=== PATIENT | male | born 1945 | race Caucasian/White ===

== ENCOUNTER 2017-10-07 08:00 | Outpatient (CLI) | payer MEDICARE, OTHER ==
[2017-10-07 12:50] LABS: BASOPHILS # (AUTO) 0.1 10^3/uL (0.0-0.1); BASOPHILS % (AUTO) 0.9 %; EOSINOPHILS # (AUTO) 0.5 10^3/uL (0.0-0.7); EOSINOPHILS % (AUTO) 5.5 %; HGB - HEMOGLOBIN 13.6 g/dL (14.0-18.0); LYMPHOCYTES # (AUTO) 1.3 10^3/uL (1.5-3.5); LYMPHOCYTES % (AUTO) 15.9 %; MEAN CORPUSCULAR HEMOGLOBIN 31.4 pg (27.0-31.0); MEAN CORPUSCULAR HGB CONC 34.6 g/dL (32.0-36.0); MEAN CORPUSCULAR VOLUME 90.8 fL (80.0-94.0); MEAN PLATELET VOLUME 8.9 fL (7.4-11.4); MONOCYTES # (AUTO) 0.9 10^3/uL (0.0-1.0); MONOCYTES % (AUTO) 10.8 %; NEUTROPHILS # (AUTO) 5.5 10^3/uL (1.5-6.6); NEUTROPHILS % (AUTO) 66.9 %; PLT - PLATELET COUNT 277 10^3/uL (130-450); RED BLOOD COUNT 4.33 10^6/uL (4.70-6.10); RED CELL DISTRIBUTION WIDTH 13.2 % (12.0-15.0); WHITE BLOOD COUNT 8.3 x10^3/uL (4.8-10.8)
[2017-10-07 13:11] LABS: ALBUMIN 4.2 g/dL (3.2-5.5); ALBUMIN/GLOBULIN RATIO 1.2 (1.0-2.2); ALKALINE PHOSPHATASE 55 IU/L (42-121); ALT ALANINE AMINOTRANSFERASE 28 IU/L (10-60); AST ASPARTATE AMINOTRANSFERASE 27 IU/L (10-42); BILIRUBIN,TOTAL 0.5 mg/dL (0.2-1.0); BUN - BLOOD UREA NITROGEN 19 mg/dL (6-20); CALCIUM 9.1 mg/dL (8.5-10.3); CARBON DIOXIDE - CO2 24 mmol/L (21-32); CHLORIDE 101 mmol/L (101-111); CHOL/HDL RATIO 4.3 (<5.0); CHOLESTEROL 193 mg/dL; CREATININE 0.8 mg/dL (0.6-1.2); GFR - MDRD 95 (>89); GLUCOSE 109 mg/dL (70-100); HDL CHOLESTEROL 45 mg/dL; LDL CHOLESTEROL,CALCULATED 129 mg/dL; LDL/HDL RATIO 2.9 (<3.6); SODIUM 135 mmol/L (135-145); TOTAL PROTEIN 7.6 g/dL (6.7-8.2); VLDL CHOLESTEROL 19 mg/dL
[2017-10-07 13:39] LABS: HB2 TOTAL 14.8 g/dL; HEMOGLOBIN A1C 0.57 g/dL; HEMOGLOBIN A1C % 5.7 % (4.6-6.2)
== END 2017-10-07 08:01 | disposition home or self-care (01) ==
LOC: LAB.WCP 08:00
PROVIDERS: ATTEND Family Medicine
DX: E78.5 Hyperlipidemia, unspecified (principal); R73.01 Impaired fasting glucose; L57.0 Actinic keratosis; I10 Essential (primary) hypertension; Z12.5 Encounter for screening for malignant neoplasm of prostate
CPT/HCPCS: 36415; 80053; 80061; 83036; 84443; 85025; G0103; 84153

== ENCOUNTER 2017-11-09 08:00 | Outpatient (CLI) | payer MEDICARE, OTHER ==
[2017-11-09 12:49] LABS: CREATININE 0.9 mg/dL (0.6-1.2)
== END 2017-11-09 08:01 | disposition home or self-care (01) ==
LOC: LAB.WCP 08:00
PROVIDERS: ATTEND Family Medicine
DX: I10 Essential (primary) hypertension (principal)
CPT/HCPCS: 36415; 80048

== ENCOUNTER → 2019-03-28 | Outpatient (CLI) | payer MEDICARE, OTHER ==
[2019-03-28 18:45] LABS: BASOPHILS # (AUTO) 0.1 10^3/uL (0.0-0.1); BASOPHILS % (AUTO) 0.9 %; EOSINOPHILS # (AUTO) 0.4 10^3/uL (0.0-0.7); EOSINOPHILS % (AUTO) 5.5 %; HGB - HEMOGLOBIN 12.9 g/dL (14.0-18.0); LYMPHOCYTES # (AUTO) 1.9 10^3/uL (1.5-3.5); LYMPHOCYTES % (AUTO) 29.3 %; MEAN CORPUSCULAR HEMOGLOBIN 31.2 pg (27.0-31.0); MEAN CORPUSCULAR HGB CONC 32.6 g/dL (32.0-36.0); MEAN CORPUSCULAR VOLUME 95.9 fL (80.0-94.0); MEAN PLATELET VOLUME 11.2 fL (7.4-11.4); MONOCYTES # (AUTO) 0.7 10^3/uL (0.0-1.0); MONOCYTES % (AUTO) 10.9 %; NEUTROPHILS # (AUTO) 3.4 10^3/uL (1.5-6.6); NEUTROPHILS % (AUTO) 53.1 %; PLT - PLATELET COUNT 254 10^3/uL (130-450); RED BLOOD COUNT 4.13 10^6/uL (4.70-6.10); RED CELL DISTRIBUTION WIDTH 13.2 % (12.0-15.0); WHITE BLOOD COUNT 6.4 x10^3/uL (4.8-10.8)
[2019-03-28 18:59] LABS: HB2 TOTAL 13.7 g/dL; HEMOGLOBIN A1C 0.55 g/dL; HEMOGLOBIN A1C % 5.8 % (4.6-6.2)
[2019-03-28 19:14] LABS: ALBUMIN 3.8 g/dL (3.2-5.5); ALBUMIN/GLOBULIN RATIO 1.1 (1.0-2.2); ALKALINE PHOSPHATASE 58 IU/L (42-121); ALT ALANINE AMINOTRANSFERASE 31 IU/L (10-60); AST ASPARTATE AMINOTRANSFERASE 28 IU/L (10-42); BILIRUBIN,TOTAL 1.2 mg/dL (0.2-1.0); BUN - BLOOD UREA NITROGEN 17 mg/dL (6-20); CARBON DIOXIDE - CO2 24 mmol/L (21-32); CHLORIDE 105 mmol/L (101-111); CHOL/HDL RATIO 4.6 (<5.0); CHOLESTEROL 193 mg/dL; CREATININE 0.9 mg/dL (0.6-1.2); GFR - MDRD 82 (>89); GLUCOSE 92 mg/dL (70-100); HDL CHOLESTEROL 42 mg/dL; LDL CHOLESTEROL,CALCULATED 131 mg/dL; LDL/HDL RATIO 3.1 (<3.6); SODIUM 139 mmol/L (135-145); TOTAL PROTEIN 7.2 g/dL (6.7-8.2); VLDL CHOLESTEROL 20 mg/dL
== END ==
LOC: LAB.WCP 08:00
PROVIDERS: ATTEND Family Medicine
DX: I10 Essential (primary) hypertension (principal); R73.01 Impaired fasting glucose; E78.5 Hyperlipidemia, unspecified
CPT/HCPCS: 36415; 80053; 80061; 83036; 83721; 85025

== ENCOUNTER 2019-12-14 08:00 | Outpatient (CLI) | payer MEDICARE, OTHER ==
[2019-12-14 18:24] LABS: BASOPHILS # (AUTO) 0.1 10^3/uL (0.0-0.1); BASOPHILS % (AUTO) 0.7 %; EOSINOPHILS # (AUTO) 0.4 10^3/uL (0.0-0.7); EOSINOPHILS % (AUTO) 5.8 %; HGB - HEMOGLOBIN 13.3 g/dL (14.0-18.0); LYMPHOCYTES % (AUTO) 27.9 %; MEAN CORPUSCULAR HEMOGLOBIN 29.9 pg (27.0-31.0); MEAN CORPUSCULAR HGB CONC 31.7 g/dL (32.0-36.0); MEAN CORPUSCULAR VOLUME 94.4 fL (80.0-94.0); MEAN PLATELET VOLUME 10.8 fL (7.4-11.4); MONOCYTES # (AUTO) 0.6 10^3/uL (0.0-1.0); MONOCYTES % (AUTO) 8.3 %; NEUTROPHILS # (AUTO) 4.1 10^3/uL (1.5-6.6); PLT - PLATELET COUNT 295 10^3/uL (130-450); RED BLOOD COUNT 4.45 10^6/uL (4.70-6.10); RED CELL DISTRIBUTION WIDTH 13.2 % (12.0-15.0); WHITE BLOOD COUNT 7.2 x10^3/uL (4.8-10.8)
[2019-12-14 18:38] LABS: ALBUMIN 3.9 g/dL (3.2-5.5); ALBUMIN/GLOBULIN RATIO 1.1 (1.0-2.2); BILIRUBIN,TOTAL 0.9 mg/dL (0.2-1.0); CALCIUM 9.2 mg/dL (8.5-10.3); CREATININE 0.9 mg/dL (0.6-1.2); TOTAL PROTEIN 7.5 g/dL (6.7-8.2)
[2019-12-14 18:59] LABS: HB2 TOTAL 13.4 g/dL; HEMOGLOBIN A1C 0.59 g/dL; HEMOGLOBIN A1C % 6.2 % (4.6-6.2)
== END 2019-12-14 23:59 | disposition home or self-care (01) ==
LOC: LAB.WCP 08:00
PROVIDERS: ATTEND Family Medicine
DX: G81.90 Hemiplegia, unspecified affecting unspecified side (principal); E78.5 Hyperlipidemia, unspecified; R73.01 Impaired fasting glucose; I10 Essential (primary) hypertension
CPT/HCPCS: 36415; 80053; 83036; 85025; 85651

== ENCOUNTER 2019-12-18 12:57 | Outpatient (CLI) | payer MEDICARE, OTHER ==
[2019-12-18] MEDS ORDERED: GADOBUTROL 10 MMOL/10 ML VIAL ONE (16:22)
[2019-12-18] MEDS ORDERED: GADOBUTROL 10 MMOL/10 ML VIAL IVP ONE (17:32)
--- NOTE | 2019-12-18 18:08 | MRI Report ---
Reason: TRANSIENT ISCHEMIC ATTACK Procedure Date: 12/18/2019 Accession Number: [id number] / [id number] Procedure: MRI - Brain W/WO CPT Code: Final Report FULL RESULT: EXAM: MRI BRAIN WITHOUT AND WITH CONTRAST EXAM DATE: 12/18/2019 04:32 PM. CLINICAL HISTORY: Episodes over the last 1-2 weeks with difficulty controlling the left leg. Feels off balance. COMPARISON: Carotid ultrasound 12/18/2019. TECHNIQUE: Multiplanar, multisequence T1-weighted and fluid-sensitive MR sequences of the brain were performed before and after administration of intravenous contrast. Sequences optimized for routine evaluation. Other: None. IV Contrast: 10 cc Gadavist. FINDINGS: There are small areas of cortical restricted diffusion signal throughout the distribution of the right MCA. These are fairly clustered in the right inferior parietal lobe over a roughly 3 cm area with extension near the parietal occipital junction. A few of these areas of restricted diffusion signal demonstrate very faint low ADC map signal. Most of these areas do not demonstrate low ADC map signal. In these areas of restricted diffusion signal there is FLAIR hyperintense signal. In the larger areas there is gyral/cortical thickening present. In the left precentral gyrus superiorly there are areas of cortical FLAIR signal with a sales representative womens health focus on image 22 series 701. There is no significant volume loss associated with these FLAIR signal abnormalities in the left precentral gyrus. There are subcortical and deep white matter FLAIR hyperintensities scattered throughout the cerebral hemisphere white matter bilaterally. There is motion degradation on the exam. No abnormal T2 or FLAIR hyperintensities are present in the infratentorial brain. There is an expected flow void in the major intracranial vessels at the skull base. No mass is present in either orbit or in either Meckel's cave. Scattered paranasal sinus mucosal thickening is present. Postcontrast images demonstrate areas of gyriform enhancement involving segments of the right MCA distribution including both anterior and posterior divisions. No abnormal enhancement is seen in the infratentorial brain. No enhancing mass is present in the brain parenchyma. Expected enhancement is present in the major dural venous sinuses. The cavernous sinuses enhance in symmetric fashion. No cerebellar tonsillar ectopia is present. There is some gyriform T1 shortening in the right parietal lobe in the area of restricted diffusion signal and enhancement. There is some magnetic susceptibility in this region as well. IMPRESSION: 1. There are subacute infarcts involving multiple areas in the right MCA distribution. The greatest area of involvement is in the inferior right parietal lobe where there is some gyriform enhancement and some petechial hemorrhagic transformation. 2. There are late subacute/early chronic infarcts involving the cortex of the left precentral gyrus. 3. Subacute infarcts in 2 vascular distributions raises the possibility of an embolic source or a PACKAGE HANDLER vasculitis. 3. No enhancing mass is present in the brain parenchyma. 4. Small vessel ischemic change is present in the cerebral hemisphere white matter bilaterally. The findings were discussed with the patient by telephone. The patient was referred to the [facility] ER. RADIA
--- NOTE | 2019-12-18 18:21 | Ultrasound Report ---
Reason: HEMIPLEGIA Procedure Date: 12/18/2019 Accession Number: [id number] / [id number] Procedure: US - Carotid Doppler Complete CPT Code: Final Report FULL RESULT: EXAM: BILATERAL CAROTID AND VERTEBRAL ARTERY DUPLEX DOPPLER ULTRASOUND. EXAM DATE: 12/18/2019 01:59 PM. CLINICAL HISTORY: Hemiplegia. COMPARISON: None. TECHNIQUE: Grayscale imaging, color Doppler, and duplex spectral Doppler were used to evaluate the carotid and vertebral arteries bilaterally. Static images were obtained. FINDINGS: Mild diffuse calcified plaque is present bilaterally. Normal antegrade flow is present in bilateral vertebral arteries. VELOCITIES (cm/s): Right CCA prox: PSV 83.3 cm/sec, EDV 9.8 cm/sec CCA mid: PSV 91.1 cm/sec, EDV 12.5cm/sec CCA dist: PSV 92.6 cm/sec, EDV 16.2cm/sec ICA prox: PSV 243.2 cm/sec, EDV 46.3 cm/sec ICA mid: PSV 236.1 cm/sec, EDV 20.2 cm/sec ICA dist: PSV 63.8 cm/sec, EDV 15.1 cm/sec ECA prox: PSV 116.9 cm/sec, EDV 12.1 cm/sec Vert: PSV 45.3 cm/sec, EDV 11.1 cm/sec ICA/CCA: 0.7 Left CCA prox: PSV 108.0 cm/sec, EDV 20.2 cm/sec CCA mid: PSV 124.8 cm/sec, EDV 23.7cm/sec CCA dist: PSV 127.6 cm/sec, EDV 20.5cm/sec Bulb: PSV 126.1 cm/sec, EDV 20.5 cm/sec ICA prox: PSV 167.4 cm/sec, EDV 33.0 cm/sec ICA mid: PSV 115.9 cm/sec, EDV 36.4 cm/sec ICA dist: PSV 70.0 cm/sec, EDV 18.6 cm/sec ECA prox: PSV 125.3 cm/sec, EDV 9.9 cm/sec Vert: PSV 49.1 cm/sec, EDV 12.3 cm/sec ICA/CCA: 0.9 IMPRESSION: Elevated velocities in the proximal and mid right internal carotid artery suggestive of greater than 70% stenosis. However, this is discordant with the degree of stenosis on grayscale imaging as well as the ICA/CCA ratio and Doppler tracing. Recommend further evaluation with CTA or MRA. No hemodynamically significant stenoses in the left internal carotid artery. General Recommendations: Stenosis =50% ICA - Follow-up ultrasound 6-12 months Stenosis <50% ICA - High Risk Patient with plaque - Follow-up ultrasound 1-2 years Normal Study but High Risk Patient - Follow-up ultrasound 3-5 years Management recommendations and diagnostic criteria are based on current IAC endorsed standards in Carotid Artery Stenosis: Grayscale and Doppler Ultrasound Diagnosis. Validated velocity measurements with angiographic measurements and velocity criteria are extrapolated from diameter data as defined by the Society of Radiologists in Ultrasound Consensus Conference Radiology 2003; 229;340-346. RADIA
== END 2019-12-18 12:58 | disposition home or self-care (01) ==
LOC: DI 12:57
PROVIDERS: ATTEND Family Medicine
DX: I63.511 Cerebral infarction due to unspecified occlusion or stenosis of right middle cerebral artery (principal); I63.9 Cerebral infarction, unspecified; I67.82 Cerebral ischemia; I65.21 Occlusion and stenosis of right carotid artery; G81.90 Hemiplegia, unspecified affecting unspecified side
CPT/HCPCS: 70553; 93308; 93880

== ENCOUNTER 2019-12-18 17:26 | Emergency (ER) | payer MEDICARE, OTHER ==
--- NOTE | 2019-12-18 17:54 | ED Physician Documentation ---
PD HPI FOCAL NEURO - Stated complaint Stated Complaint: ABN MRI REPORT - Chief complaint Chief Complaint: Neuro - History obtained from History obtained from: Patient - History of Present Illness Timing - onset: Other (74-year-old gentleman without history of stroke, about 2 weeks ago he had some migratory problems on the left side. It started with transient numbness of the fingers and then a couple of days later had about a 10-minute episode of weakness of the left leg. Now he is all better but followed up with his doctor who ordered an MRI, blood work, echocardiogram, and carotid Dopplers. He was referred over from MRI for concern for stroke. He has no ongoing symptoms. Since all these issues he had a couple weeks ago his doctor did start him on a baby aspirin a day. His cholesterol within the year was normal per him.) Review of Systems Constitutional: denies: Fever, Chills Nose: denies: Rhinorrhea / runny nose, Congestion Cardiac: denies: Chest pain / pressure, Palpitations Respiratory: denies: Dyspnea PD PAST MEDICAL HISTORY - Past Medical History Past Medical History: No - Past Surgical History Past Surgical History: No - Allergies Allergies/Adverse Reactions: Allergies Allergy/AdvReac Type Severity Reaction Status Date / Time No Known Drug Allergies Allergy Verified 12/18/19 17:35 - Social History Does the pt smoke?: No Smoking Status: Never smoker Does the pt drink ETOH?: No Does the pt have substance abuse?: No - Immunizations Immunizations are current?: Yes - POLST Patient has POLST: No PD ED PE NORMAL - Vitals Vital signs reviewed: Yes - General General: Alert and oriented X 3, No acute distress - HEENT HEENT: PERRL, EOMI - Neck Neck: Supple, no meningeal sign, No bony TTP - Neuro Neuro: Alert and oriented X 3, dispatcher bus and trolley 2-12 intact, No motor deficit, No sensory deficit, Normal speech - Psych Psych: Normal mood, Normal affect NIHSS - Time Time: 17:50 - Level of Consciousness Level of consciousness: (0) Alert, Keenly responsive LOC Questions: (0) Answers both Q's correct LOC Commands: (0) Performs both correctly - Gaze Best Gaze: (0) Normal - Visual Visual: (0) No loss - Facial Palsy Facial Palsy: (0) Normal, symmetrical movement - Motor Arms (both separate) Motor Arm (right): (0) No drift Motor Arm (left): (0) No drift - Motor Legs (both separate) Motor Leg (right): (0) No drift Motor Leg (left): (0) No drift - Limb Ataxia Limb Ataxia: (0) Absent - Sensory Sensory: (0) Normal - Best Language Best Language: (0) No aphasia - Dysarthria Dysarthria: (0) Normal - Extinction and Inattention (formally neg Extinction and inattention: (0) No abnormality - Total Score/Results Total Score/Result: 0 Results - Vitals Vitals: Vital Signs - 24 hr 12/18/19 12/18/19 12/18/19 17:32 17:35 21:16 Temperature 36.3 C L 36.7 C Heart Rate 59 L 59 L 61 Respiratory 18 18 17 Rate Blood Pressure 155/87 H 155/87 H 172/89 H O2 Saturation 94 94 99 Oxygen O2 Source Room air - Rads (name of study) MRI Brain Radiology: Critical result (1. There are subacute infarcts involving multiple areas in the right MCA distribution. The greatest area of involvement is in the inferior right parietal lobe where there is some gyriform enhancement and some petechial hemorrhagic transformation. 2. There are late subacute/early chronic infarcts involving the cortex of the left precentral gyrus. 3. Subacute infarcts in 2 vascular distributions raises the possibility of an embolic source or a WATER CHASER vasculitis. 3. No enhancing mass is present in the brain parenchyma. 4. Small vessel ischemic change is present in the cerebral hemisphere white matter bilaterally.) carotid doppler Radiology: Final report received (Elevated velocities in the proximal and mid right internal carotid artery suggestive of greater than 70% stenosis. However, this is discordant with the degree of stenosis on grayscale imaging as well as the ICA/CCA ratio and Doppler tracing. Recommend further evaluation with CTA or MRA. No hemodynamically significant stenoses in the left internal carotid artery.) CTA Neck Radiology: EMP read contemporaneously (90% stenosis proximal cervical ICA And a left-sided filling defect, likely atherosclerotic plaque.) PD MEDICAL DECISION MAKING - ED course ED course: 74-year-old gentleman with completed now asymptomatic stroke in multiple areas mostly on the right with carotid Doppler showing elevated velocities on the right. Case discussed by phone with the [place] stroke neurologist who recommended aspirin which he is already been statin started on as well as a statin regardless of his cholesterol. Agreed with a CT angiogram to rule out vasculitis and to better define the anatomy because he does fit criteria for carotid endarterectomy and this should be done within 2 weeks but not emergently. Departure - Departure Disposition: 01 Home, Self Care Clinical Impression: Carotid stenosis, right Cerebrovascular accident (CVA) Qualifiers: CVA mechanism: unspecified Qualified Code(s): I63.9 - Cerebral infarction, unspecified Condition: Stable Comments: Downtime discharge instructions for Shira Anderson Date of service 12/18/2019 Attending physician Jin Owens MD Diagnosis stroke, right carotid artery stenosis Take a baby aspirin a day, also the new cholesterol medicine Atorvastatin 40 mg p.o. daily #30 Follow-up with Dr. Guy tomorrow, he will need to refer you to a vascular surgeon for carotid endarterectomy. Return immediately for new strokelike symptoms. Do not delay if that happens. Discharge Date/Time: 12/18/19 20:45
[2019-12-18] MEDS ORDERED: IOVERSOL 320 100 ML VIAL IVP ONE (18:33)
[2019-12-18] MEDS ORDERED: ATORVASTATIN 40 MG TABLET PO STA (19:07)
[2019-12-18 21:40] VITALS: BP 172/89
--- NOTE | 2019-12-18 21:40 | CT Report ---
Reason: abnormal carotid doppler Procedure Date: 12/18/2019 Accession Number: [id number] / [id number] Procedure: CT - ANGIO NECK W CPT Code: Final Report FULL RESULT: EXAM: CT ANGIOGRAM NECK EXAM DATE: 12/18/2019 07:32 PM. CLINICAL HISTORY: Balance issues. Left finger numbness. Subacute stroke seen on recent MRI. COMPARISON: MRI brain from today. Carotid ultrasound from today. TECHNIQUE: Routine axial helical imaging was performed from the skull base through the aortic arch. Reconstructions: Routine multiplanar 3D MIP reconstructions. IV Contrast: 80 cc Optiray 320. Evaluation of arterial stenosis is based on a NASCET method of measurement. In accordance with CT protocol optimization, one or more of the following dose reduction techniques were utilized for this exam: automated exposure control, adjustment of mA and/or KV based on patient size, or use of iterative reconstructive technique. FINDINGS: Great vessel origins: Atherosclerotic plaque is seen in the transverse thoracic aorta. No significant great vessel origin stenosis is present. Right Carotid: Atherosclerotic plaque is seen involving the distal CCA and proximal cervical ICA. There is a roughly 8-9 mm in length segment of severe stenosis beginning just distal to the origin of the cervical ICA with degree of stenosis estimated at least 90%. Left Carotid: Atherosclerotic plaque is seen in the distal CCA and proximal cervical ICA. There is a linear filling defect along the lateral wall of the proximal cervical ICA with contrast seen lateral and medial. There is some irregularity of the lateral margin of the contrast. No significant stenosis is seen in the cervical ICA. Vertebrals: The cervical vertebral arteries are patent. There is mild narrowing at the origin of each vertebral artery. Intracranial Circulation: Not seen in its entirety. No high-grade stenosis, filling defect, or occlusion is present in the basilar trunk or in the M1 segment of either MCA. The proximal JUAN and the proximal HELPER STEEL FABRICATION are patent bilaterally. Atherosclerotic plaque is seen in the cavernous ICA bilaterally without significant narrowing present. A posterior communicating artery is seen on the left. No saccular outpouching of contrast is present to suggest an aneurysm. Other: No mass is present in either orbit. No mass is present in the nasopharynx. No mass is identified in either parotid gland or in either submandibular gland. No bulky lymphadenopathy is identified along either internal jugular chain. No bulky lymphadenopathy is seen in the visualized upper mediastinum. There is a 5-6 mm hypoenhancing nodule in the right thyroid lobe. CT cannot distinguish benign from malignant thyroid disease. A calcified pulmonary nodule is seen in the right upper lobe. Pleural/parenchymal scarring is present in each lung apex. Degenerative disk disease and osteophyte formation are seen throughout the cervical spine and visualized upper thoracic spine. The central canal is mildly stenotic from C4 through C6. There is multilevel cervical foraminal stenosis IMPRESSION: 1. There is an at least 90% stenosis in the proximal cervical ICA on the right over a 8-9 mm in length segment which begins just distal to its origin. 2. There is a linear filling defect along the lateral margin of the proximal cervical ICA on the left. This could reflect ulcerated atherosclerotic plaque. A short segment dissection is also in the differential. 3. Mild narrowing is seen at the origin of each vertebral artery. The cervical vertebral arteries are patent. 4. No significant stenosis is present in the basilar trunk, either cavernous ICA, or M1 segment of either MCA. 5. Degenerative changes are seen in the cervical and upper thoracic spine discussed above. 6. A small thyroid nodule is seen on the right discussed above. RADIA
[2019-12-19] MEDS ORDERED: IOVERSOL 320 100 ML VIAL IVP ONE (11:36)
== END 2019-12-18 20:45 | disposition home or self-care (01) ==
LOC: ED 17:26
DX: I63.9 Cerebral infarction, unspecified (principal); I65.21 Occlusion and stenosis of right carotid artery; I63.511 Cerebral infarction due to unspecified occlusion or stenosis of right middle cerebral artery; I67.82 Cerebral ischemia; G81.90 Hemiplegia, unspecified affecting unspecified side
CPT/HCPCS: 70498; 70553; 93308; 93880; 99284; A9270; A9585

== ENCOUNTER 2020-03-28 11:26 | Outpatient (CLI) | payer MEDICARE, OTHER ==
[2020-03-28 18:31] LABS: BASOPHILS # (AUTO) 0.1 10^3/uL (0.0-0.1); BASOPHILS % (AUTO) 0.9 %; EOSINOPHILS # (AUTO) 0.8 10^3/uL (0.0-0.7); EOSINOPHILS % (AUTO) 10.5 %; HGB - HEMOGLOBIN 13.6 g/dL (14.0-18.0); LYMPHOCYTES # (AUTO) 1.9 10^3/uL (1.5-3.5); LYMPHOCYTES % (AUTO) 24.4 %; MEAN CORPUSCULAR HEMOGLOBIN 31.3 pg (27.0-31.0); MEAN CORPUSCULAR HGB CONC 32.2 g/dL (32.0-36.0); MEAN CORPUSCULAR VOLUME 97.2 fL (80.0-94.0); MEAN PLATELET VOLUME 11.2 fL (7.4-11.4); MONOCYTES # (AUTO) 0.7 10^3/uL (0.0-1.0); MONOCYTES % (AUTO) 9.5 %; NEUTROPHILS # (AUTO) 4.1 10^3/uL (1.5-6.6); NEUTROPHILS % (AUTO) 54.3 %; PLT - PLATELET COUNT 259 10^3/uL (130-450); RED BLOOD COUNT 4.35 10^6/uL (4.70-6.10); RED CELL DISTRIBUTION WIDTH 13.2 % (12.0-15.0); WHITE BLOOD COUNT 7.6 x10^3/uL (4.8-10.8)
[2020-03-28 18:36] LABS: CALCIUM 8.9 mg/dL (8.5-10.3); CARBON DIOXIDE - CO2 29 mmol/L (21-32); CHLORIDE 105 mmol/L (101-111); GLUCOSE 107 mg/dL (70-100); SODIUM 139 mmol/L (135-145)
[2020-03-28 18:50] LABS: HB2 TOTAL 13.9 g/dL; HEMOGLOBIN A1C 0.54 g/dL; HEMOGLOBIN A1C % 5.7 % (4.6-6.2)
[2020-03-28 19:00] LABS: ALBUMIN 4.1 g/dL (3.2-5.5); ALBUMIN/GLOBULIN RATIO 1.3 (1.0-2.2); ALKALINE PHOSPHATASE 62 IU/L (42-121); ALT ALANINE AMINOTRANSFERASE 35 IU/L (10-60); AST ASPARTATE AMINOTRANSFERASE 26 IU/L (10-42); BILIRUBIN,TOTAL 0.7 mg/dL (0.2-1.0); BUN - BLOOD UREA NITROGEN 19 mg/dL (6-20); CHOL/HDL RATIO 2.7 (<5.0); CHOLESTEROL 127 mg/dL; HDL CHOLESTEROL 47 mg/dL; LDL CHOLESTEROL,CALCULATED 66 mg/dL; LDL/HDL RATIO 1.4 (<3.6); TOTAL PROTEIN 7.3 g/dL (6.7-8.2); VLDL CHOLESTEROL 14 mg/dL
== END 2020-03-28 23:59 | disposition home or self-care (01) ==
LOC: LAB.WCP 11:26
PROVIDERS: ATTEND Family Medicine
DX: I10 Essential (primary) hypertension (principal); I63.50 Cerebral infarction due to unspecified occlusion or stenosis of unspecified cerebral artery; R73.01 Impaired fasting glucose; E78.5 Hyperlipidemia, unspecified; G45.9 Transient cerebral ischemic attack, unspecified
CPT/HCPCS: 36415; 80053; 80061; 83036; 83721; 84443; 85025

== ENCOUNTER 2021-06-17 08:00 | Outpatient (CLI) | payer MEDICARE, OTHER ==
[2021-06-17 12:05] LABS: BASOPHILS # (AUTO) 0.1 10^3/uL (0.0-0.1); BASOPHILS % (AUTO) 0.9 %; EOSINOPHILS # (AUTO) 0.4 10^3/uL (0.0-0.7); HCT - HEMATOCRIT 42.5 % (42.0-52.0); HGB - HEMOGLOBIN 13.7 g/dL (14.0-18.0); LYMPHOCYTES # (AUTO) 1.9 10^3/uL (1.5-3.5); LYMPHOCYTES % (AUTO) 28.8 %; MEAN CORPUSCULAR HEMOGLOBIN 30.7 pg (27.0-31.0); MEAN CORPUSCULAR HGB CONC 32.2 g/dL (32.0-36.0); MEAN CORPUSCULAR VOLUME 95.3 fL (80.0-94.0); MEAN PLATELET VOLUME 10.8 fL (7.4-11.4); MONOCYTES # (AUTO) 0.8 10^3/uL (0.0-1.0); MONOCYTES % (AUTO) 11.3 %; NEUTROPHILS # (AUTO) 3.5 10^3/uL (1.5-6.6); NEUTROPHILS % (AUTO) 52.7 %; PLT - PLATELET COUNT 269 10^3/uL (130-450); RED BLOOD COUNT 4.46 10^6/uL (4.70-6.10); RED CELL DISTRIBUTION WIDTH 13.2 % (12.0-15.0); WHITE BLOOD COUNT 6.6 x10^3/uL (4.8-10.8)
[2021-06-17 12:45] LABS: ALBUMIN 4.1 g/dL (3.2-5.5); ALBUMIN/GLOBULIN RATIO 1.2 (1.0-2.2); ALKALINE PHOSPHATASE 59 IU/L (42-121); ALT ALANINE AMINOTRANSFERASE 39 IU/L (10-60); AST ASPARTATE AMINOTRANSFERASE 28 IU/L (10-42); BILIRUBIN,TOTAL 0.6 mg/dL (0.2-1.0); BUN - BLOOD UREA NITROGEN 25 mg/dL (6-20); CALCIUM 9.6 mg/dL (8.5-10.3); CARBON DIOXIDE - CO2 26 mmol/L (21-32); CHLORIDE 108 mmol/L (101-111); CHOL/HDL RATIO 3.1 (<5.0); CHOLESTEROL 129 mg/dL; CREATININE 1.1 mg/dL (0.6-1.2); GFR - MDRD 65 (>89); GLUCOSE 115 mg/dL (70-100); HDL CHOLESTEROL 42 mg/dL; LDL CHOLESTEROL,CALCULATED 67 mg/dL; LDL/HDL RATIO 1.6 (<3.6); SODIUM 144 mmol/L (135-145); TOTAL PROTEIN 7.6 g/dL (6.7-8.2); TRIGLYCERIDES 99 mg/dL; VLDL CHOLESTEROL 20 mg/dL
[2021-06-17 13:11] LABS: THYROID STIMULATING HORMONE 3.36 uIU/mL (0.34-5.60)
== END 2021-06-17 23:59 | disposition home or self-care (01) ==
LOC: LAB.WCP 08:00
PROVIDERS: ATTEND Family Medicine
DX: I63.9 Cerebral infarction, unspecified (principal); G45.9 Transient cerebral ischemic attack, unspecified; I10 Essential (primary) hypertension; G47.33 Obstructive sleep apnea (adult) (pediatric)
CPT/HCPCS: 36415; 80053; 80061; 83721; 84443; 85025

== ENCOUNTER 2021-07-23 14:58 | Outpatient (CLI) | payer MEDICARE, OTHER | END 2021-07-23 23:59 | LOC: LAB.N 14:58 | PROVIDERS: ATTEND Family Medicine | DX: U07.1 COVID-19 (principal); R91.8 Other nonspecific abnormal finding of lung field | CPT/HCPCS: 71046; U0004 ==

== ENCOUNTER 2021-07-23 15:26 | Outpatient (CLI) | payer MEDICARE, OTHER ==
--- NOTE | 2021-07-31 00:15 | XRAY Report ---
PROCEDURE: Chest 2 View X-Ray INDICATIONS: DRY COUGH TECHNIQUE: 2 view(s) of the chest. Images became available for interpretation on 07/30/2021. COMPARISON: None. FINDINGS: Surgical changes and devices: None. Lungs and pleura: No pleural effusions or pneumothorax. Faint appearance of increased right basilar opacity. Mediastinum: Mediastinal contours are normal. Heart size is normal. Bones and chest wall: No suspicious bony abnormalities. Soft tissues appear unremarkable. IMPRESSION: Faint right basilar opacity possibly representing developing pneumonia versus atelectasi s. Reviewed by: Edith Nair MD on 07/31/2021 12:14 AM PDT Approved by: Edith Nair MD on 07/31/2021 12:14 AM PDT Station ID: [id number]
== END 2021-07-23 23:59 | disposition home or self-care (01) ==
LOC: DI.N 15:26
PROVIDERS: ATTEND Family Medicine
DX: R91.8 Other nonspecific abnormal finding of lung field (principal)

== ENCOUNTER 2021-08-01 16:47 | Outpatient (CLI) | payer MEDICARE, OTHER ==
--- NOTE | 2021-08-01 22:43 | XRAY Report ---
PROCEDURE: Chest 2 View X-Ray INDICATIONS: COVID PNEUMONIA TECHNIQUE: 2 view(s) of the chest. COMPARISON: 2020 FINDINGS: Surgical changes and devices: None. Lungs and pleura: Bibasilar pulmonary infiltrates consistent with pneumonia Mediastinum: Mediastinal contours are normal. Heart size is normal. Bones and chest wall: No suspicious bony abnormalities. Soft tissues appear unremarkable. IMPRESSION: Bibasilar pulmonary infiltrates consistent with pneumonia Reviewed by: Estuardo Medina MD on 08/01/2021 9:42 PM AKDT Approved by: Estuardo Medina MD on 08/01/2021 9:42 PM AKDT Station ID: [id number]
== END 2021-08-01 23:59 | disposition home or self-care (01) ==
LOC: DI.N 16:47
PROVIDERS: ATTEND Family Medicine
DX: U07.1 COVID-19 (principal); J12.82 Pneumonia due to coronavirus disease 2019

== ENCOUNTER 2021-10-07 08:00 | Day surgery (SDC) | payer MEDICARE, OTHER ==
[2021-10-07] MEDS ORDERED: LACTATED RINGERS 1,000 ML IV ONE (08:08)
--- NOTE | 2021-10-07 08:48 | ANESTHESIA ---
Pre-Anesthesia VS, & Labs - Diagnosis screening - Procedure colonoscopy Vital Signs: Temp Pulse Resp BP Pulse Ox 36.1 C L 65 15 146/80 H 96 10/07/21 08:19 10/07/21 08:19 10/07/21 08:19 10/07/21 08:19 10/07/21 08:19 Height: 6 ft 2 in Weight (kg): 115 kg Body Mass Index: 32.5 BMI Classification: Obese - NPO >8 hours Home Medications and Allergies Home Medications: Ambulatory Orders Aspirin [Vazalore] 81 mg PO DAILY 09/30/21 Atorvastatin [Lipitor] 40 mg PO DAILY 09/30/21 Fluticasone [Flonase] 1 sprays WEN BID PRN 09/30/21 Omeprazole Magnesium 20 mg PO DAILY 09/30/21 Telmisartan/Hydrochlorothiazid [Micardis Hct 80-12.5 mg Tablet] 1 tab PO DAILY 09/30/21 hydroCHLOROthiazide [Hydrodiuril] 12.5 mg PO DAILY 09/30/21 Aspirin [Vazalore] 81 mg PO DAILY 09/30/21 Atorvastatin [Lipitor] 40 mg PO DAILY 09/30/21 Fluticasone [Flonase] 1 sprays WEN BID PRN 09/30/21 Omeprazole Magnesium 20 mg PO DAILY 09/30/21 Telmisartan/Hydrochlorothiazid [Micardis Hct 80-12.5 mg Tablet] 1 tab PO DAILY 09/30/21 hydroCHLOROthiazide [Hydrodiuril] 12.5 mg PO DAILY 09/30/21 Allergies/Adverse Reactions: Allergies Allergy/AdvReac Type Severity Reaction Status Date / Time No Known Drug Allergies Allergy Verified 12/18/19 17:35 Anes History & Medical History - Anesthetic History Anesthesia Complications: reports: No previous complications - Medical History Cardiovascular: reports: Hypertension Pulmonary: reports: None Gastrointestinal: reports: GERD Urinary: reports: None Neuro: reports: CVA (no residuals, was three years ago) Endocrine/Autoimmune: reports: None Skin: reports: None Smoking Status: Never smoker - Surgical History General: reports: Appendectomy, Colonoscopy Eyes Ears Nose Throat (EENT): reports: Cataracts Neurologic: reports: Other (carotid endardectomy on right three years ago) Exam General: Alert, Oriented x3, Cooperative Dental: WNL Mouth Opening: Greater than 4 Fingerbreadths Neck Mobility: Normal Mallampati classification: II Thyromental Distance: greater than 6 cm Respiratory: Lungs clear Cardiovascular: Regular rate Plan Anesthesia Type: Total IV Consent for Procedure(s) Verified and Reviewed: Yes Code Status: Attempt Resuscitation ASA classification: 3-Severe systemic disease Is this case an emergency?: No
[2021-10-07] MEDS ORDERED: PROPOFOL 500 MG/50 ML 500 MG/50 ML VIAL ONE (08:49)
[2021-10-07] MEDS ORDERED: MIDAZOLAM 2 MG/2 ML VIAL ONE (08:54)
[2021-10-07] MEDS ORDERED: GLYCOPYRROLATE 1 MG/5 ML VIAL ONE (09:25)
[2021-10-07] MEDS ORDERED: LACTATED RINGERS 400 ML IV ONE (09:51)
--- NOTE | 2021-10-07 10:21 | ANESTHESIA POST OP EVALUATION ---
Anesthesia Post Eval - Post Anesthesia Eval Vitals: Last Vital Signs Temp 36.4 C L 10/07/21 10:15 Pulse 63 10/07/21 10:15 Resp 20 10/07/21 10:15 BP 103/90 H 10/07/21 10:15 Pulse Ox 94 10/07/21 10:15 CV Function Including HR & BP: Stable Pain Control: Satisfactory Nausea & Vomiting: Negative Mental Status: Baseline Respiratory Status: Airway Patent Hydration Status: Satisfactory Anesthesia Complications: None
[2021-10-07 10:54] VITALS: BP 118/92
== END 2021-10-07 08:01 | disposition home or self-care (01) ==
LOC: SDS 08:00
PROVIDERS: ATTEND Surgery
PROC: 0DBL8ZZ Excision of Transverse Colon, Via Natural or Artificial Opening Endoscopic (ICD-10-PCS; 2021-10-07)
PROC: 0DBK8ZZ Excision of Ascending Colon, Via Natural or Artificial Opening Endoscopic (ICD-10-PCS; 2021-10-07)
PROC: 0DBM8ZZ Excision of Descending Colon, Via Natural or Artificial Opening Endoscopic (ICD-10-PCS; 2021-10-07)
PROC: 0DBP8ZZ Excision of Rectum, Via Natural or Artificial Opening Endoscopic (ICD-10-PCS; principal; 2021-10-07 09:15)
DX: Z12.11 Encounter for screening for malignant neoplasm of colon (principal); D12.3 Benign neoplasm of transverse colon; D12.2 Benign neoplasm of ascending colon; K62.1 Rectal polyp; K63.5 Polyp of colon; K64.8 Other hemorrhoids; K64.4 Residual hemorrhoidal skin tags; K57.30 Diverticulosis of large intestine without perforation or abscess without bleeding; E66.9 Obesity, unspecified; Z68.32 Body mass index [BMI] 32.0-32.9, adult; G47.30 Sleep apnea, unspecified; Z86.73 Personal history of transient ischemic attack (TIA), and cerebral infarction without residual deficits
CPT/HCPCS: 45380; 45385; J7120

== ENCOUNTER 2022-02-16 10:42 | Outpatient (CLI) | payer MEDICARE, OTHER ==
[2022-02-16 17:39] LABS: BASOPHILS # (AUTO) 0.1 10^3/uL (0.0-0.1); BASOPHILS % (AUTO) 0.8 %; EOSINOPHILS # (AUTO) 0.4 10^3/uL (0.0-0.7); EOSINOPHILS % (AUTO) 5.4 %; HCT - HEMATOCRIT 39.2 % (42.0-52.0); HGB - HEMOGLOBIN 12.7 g/dL (14.0-18.0); LYMPHOCYTES # (AUTO) 1.6 10^3/uL (1.5-3.5); LYMPHOCYTES % (AUTO) 21.2 %; MEAN CORPUSCULAR HEMOGLOBIN 30.6 pg (27.0-31.0); MEAN CORPUSCULAR HGB CONC 32.4 g/dL (32.0-36.0); MEAN CORPUSCULAR VOLUME 94.5 fL (80.0-94.0); MONOCYTES # (AUTO) 0.8 10^3/uL (0.0-1.0); MONOCYTES % (AUTO) 10.2 %; NEUTROPHILS # (AUTO) 4.7 10^3/uL (1.5-6.6); NEUTROPHILS % (AUTO) 62.1 %; PLT - PLATELET COUNT 265 10^3/uL (130-450); RED BLOOD COUNT 4.15 10^6/uL (4.70-6.10); RED CELL DISTRIBUTION WIDTH 13.8 % (12.0-15.0); WHITE BLOOD COUNT 7.5 x10^3/uL (4.8-10.8)
[2022-02-16 17:59] LABS: ALBUMIN 3.7 g/dL (3.2-5.5); ALBUMIN/GLOBULIN RATIO 1.1 (1.0-2.2); ALKALINE PHOSPHATASE 63 IU/L (42-121); ALT ALANINE AMINOTRANSFERASE 32 IU/L (10-60); AST ASPARTATE AMINOTRANSFERASE 26 IU/L (10-42); BILIRUBIN,TOTAL 0.6 mg/dL (0.2-1.0); BUN - BLOOD UREA NITROGEN 19 mg/dL (6-20); CALCIUM 9.4 mg/dL (8.5-10.3); CARBON DIOXIDE - CO2 28 mmol/L (21-32); CHLORIDE 107 mmol/L (101-111); CHOL/HDL RATIO 2.5 (<5.0); CHOLESTEROL 121 mg/dL; CREATININE 1.1 mg/dL (0.6-1.2); GFR - MDRD 65 (>89); GLUCOSE 118 mg/dL (70-100); HDL CHOLESTEROL 48 mg/dL; LDL CHOLESTEROL,CALCULATED 63 mg/dL; LDL/HDL RATIO 1.3 (<3.6); POTASSIUM 4.3 mmol/L (3.5-5.0); SODIUM 142 mmol/L (135-145); TRIGLYCERIDES 48 mg/dL; VLDL CHOLESTEROL 10 mg/dL
[2022-02-16 18:05] LABS: THYROID STIMULATING HORMONE 2.16 uIU/mL (0.34-5.60)
[2022-02-16 22:45] LABS: ESTIMATED AVERAGE GLUCOSE 120 mg/dL (70-100); HEMOGLOBIN A1c% 5.8 % (4.27-6.07)
== END 2022-02-16 10:43 | disposition home or self-care (01) ==
LOC: LAB.N 10:42
PROVIDERS: ATTEND Family Medicine
DX: K21.9 Gastro-esophageal reflux disease without esophagitis (principal); I10 Essential (primary) hypertension; G47.30 Sleep apnea, unspecified; R73.01 Impaired fasting glucose; E78.5 Hyperlipidemia, unspecified; I63.9 Cerebral infarction, unspecified
CPT/HCPCS: 36415; 80053; 80061; 83036; 83721; 84443; 85025

== ENCOUNTER 2022-06-18 14:27 | Outpatient (CLI) | payer MEDICARE, OTHER ==
--- NOTE | 2022-06-19 14:57 | XRAY Report ---
PROCEDURE: Foot 3 View RT INDICATIONS: RIGHT FOOT PAIN TECHNIQUE: 3 views of the foot were acquired. COMPARISON: None. FINDINGS: Bones: No fractures or dislocations. No suspicious bony lesions. Moderate degenerative joint disea se at the first tarsometatarsal joint, and mild degenerative joint disease in multiple other intertar kermit joints, tarsometatarsal joints, metatarsophalangeal joints and interphalangeal joints. Soft tissues: No tibiotalar joint effusion. Achilles tendon appears normal. IMPRESSION: Moderate degenerative joint disease. Reviewed by: Elizabeth Mo MD on 06/19/2022 2:56 PM PDT Approved by: Elizabeth Mo MD on 06/19/2022 2:56 PM PDT Station ID: [id number]
== END 2022-06-18 14:28 | disposition home or self-care (01) ==
LOC: DI 14:27
PROVIDERS: ATTEND Podiatrist
DX: M19.071 Primary osteoarthritis, right ankle and foot (principal)

== ENCOUNTER 2022-07-20 10:37 | Outpatient (CLI) | payer MEDICARE, OTHER ==
--- NOTE | 2022-07-20 15:11 | MRI Report ---
PROCEDURE: ANKLE WO - RT INDICATIONS: RIGHT ANKL EPAIN TECHNIQUE: Noncontrast Magnetic Resonance Imaging (MRI) of the ankle/hindfoot was performed utilizing the follow ing sequences: sagittal T1 spin echo, sagittal STIR, axial PD fast spin echo, axial T2 fast spin echo with fat saturation, coronal T2 spin echo with fat saturation, and coronal T1 spin echo. COMPARISON: Right foot radiographs 06/18/2022. FINDINGS: Image quality: Excellent. Bones and joints: No acute trabecular bone injury or fracture. Sagging of the midfoot is consistent with pes planus ali gnment. Chronic osteochondral lesion at the medial talar dome measures approximately 13 x 5 x 5 mm wi th subchondral cystic changes, overlying cartilage loss, irregularity of the subchondral plate. No lo ose osteochondral fragment is seen. The lateral talar dome is intact. Degenerative cystic changes or intraosseous ganglion are seen within the central calcaneus adjacent to the sinus tarsi. Mild spurrin g of the dorsal talonavicular joint. Mild generative changes are seen at the talonavicular articulati ons. Tarsometatarsal degenerative changes are better demonstrated on the MRI of the foot performed at same time. No hindfoot coalitions. Nonspecific subcutaneous soft tissue edema is seen surrounding th e ankle. Medial structures: The deep fibers of the deltoid ligament are intact. The tibiospring ligament and the superomedial ban d of the spring ligament are bowed medially around the talar head. Small amount of fluid signal inten sity is seen within the posterior tibialis tendon, consistent with partial intrasubstance tearing sup erimposed on tendinosis and moderate to severe tenosynovitis. The flexor digitorum longus and flexor hallucis longus tendons are intact. The posterior tibial neurovascular bundle appears normal within t he tarsal tunnel, without extrinsic mass effect. Lateral structures: There is mild thickening of the anterior and posterior tibiofibular ligaments with partial ossificati on along the anterior margins, suspicious for prior sprains. The anterior talofibular and calcaneofib ular ligament appears attenuated. The posterior talofibular ligament also appears attenuated chronic partial tearing. Mild peroneus longus brevis and longus tenosynovitis. There is effacement of the nor mal fat signal in the sinus tarsi. Anterior structures: The tibialis anterior, extensor hallucis longus, and extensor digitorum longus tendons appear intact. Posterior and plantar structures: The Achilles tendon is intact. There is chronic mild thickening of the proximal plantar fascia. Sever e grade 4 fatty infiltration of the abductor digiti minimi muscle is most likely related to chronic d enervation changes. There is grade 3 fatty infiltration of the remaining musculature of the foot and lower leg. IMPRESSION: 1.Chronic osteochondral lesion at the medial talar dome measures 13 x 5 x 5 mm with subchondral cysti c changes, irregularity of the subchondral plate, and overlying articular cartilage loss. No loose os teochondral fragment is seen. 2.Moderate to severe tenosynovitis of the posterior tibialis tendon superimposed on partial intrasubs tance tearing and chronic tendinosis. 3.Pes planus alignment. The tibiospring ligament and superomedial band of the spring ligament are bow ed medially around the talar head. 4.Chronic grade 2 sprains of the anterior and posterior talofibular ligament and the calcaneofibular ligament. Chronic low-grade sprains of the anterior and posterior tibiofibular ligaments. 5.Mild peroneus brevis and longus tenosynovitis. 6.Mild chronic proximal plantar fasciitis. 7.Diffuse grade 3 fatty infiltration of the visualized musculature is most likely related to chronic denervation changes. 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 Reviewed by: Rudy Lao MD on 07/20/2022 3:10 PM PDT Approved by: Rudy Lao MD on 07/20/2022 3:10 PM PDT Station ID: [id number]
--- NOTE | 2022-07-20 15:15 | MRI Report ---
PROCEDURE: FOOT WO - RT INDICATIONS: RIGHT FOOT PAIN TECHNIQUE: Noncontrast sagittal T1 spin echo and T2 fast spin echo with fat saturation, long-axis T1 spin echo a nd T2 fast spin echo with fat saturation, short-axis proton density fast spin echo and T2 fast spin e cho with fat saturation through the midfoot. COMPARISON: Right foot radiographs 06/18/2022 FINDINGS: Image quality: Excellent. Bones and joints: No acute trabecular bone injury or fracture. Severe degenerative changes are seen at the first and second tarsometatarsal joints with [id number] degenerative changes of the left side into joints. Mild navicular cuneiform and talonavicular degenerative changes. Moderate degenera tive changes are seen at the first metatarsophalangeal joint and metatarsal sesamoid articulations wi th mild degenerative edema in the medial hallux sesamoid. No intraosseous lesions. Soft tissues: There is diffuse grade 3 fatty infiltration of the intrinsic foot musculature, with gr jenny 4 fatty infiltration of the abductor digiti minimi muscle. No interdigital mass. Visualized midfo ot and forefoot flexor and extensor tendons appear intact, without tenosynovitis. No soft tissue liu glion cysts or bursal fluid collections. Sagittal images demonstrate no evidence for plantar plate t ears. Nonspecific metal artifact at the plantar aspect of the foot at the level of the distal third metatarsal shaft, likely related to debris on the skin surface. 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 2.Mild to moderate degenerative changes throughout the midfoot and hindfoot as well as the first meta tarsophalangeal joint. 3.Diffuse fatty infiltration of the intrinsic foot musculature is most likely secondary to chronic de nervation changes. Reviewed by: Rudy Lao MD on 07/20/2022 3:14 PM PDT Approved by: Rudy Lao MD on 07/20/2022 3:14 PM PDT Station ID: [id number]
== END 2022-07-20 10:38 | disposition home or self-care (01) ==
LOC: DI 10:37
PROVIDERS: ATTEND Podiatrist
DX: M19.071 Primary osteoarthritis, right ankle and foot (principal); M93.971 Osteochondropathy, unspecified, right ankle and foot; M65.9 Synovitis and tenosynovitis, unspecified; S96.821A Laceration of other specified muscles and tendons at ankle and foot level, right foot, initial encounter; M21.41 Flat foot [pes planus] (acquired), right foot; S93.491A Sprain of other ligament of right ankle, initial encounter; S93.411A Sprain of calcaneofibular ligament of right ankle, initial encounter; S93.431A Sprain of tibiofibular ligament of right ankle, initial encounter; M72.2 Plantar fascial fibromatosis

== ENCOUNTER 2023-02-11 15:58 | Outpatient (CLI) | payer MEDICARE, OTHER ==
[2023-02-11 17:29] LABS: ALBUMIN 3.9 g/dL (3.2-5.5); ALBUMIN/GLOBULIN RATIO 1.1 (1.0-2.2); ALKALINE PHOSPHATASE 61 IU/L (42-121); ALT ALANINE AMINOTRANSFERASE 29 IU/L (10-60); AST ASPARTATE AMINOTRANSFERASE 24 IU/L (10-42); BILIRUBIN,TOTAL 0.8 mg/dL (0.2-1.0); BUN - BLOOD UREA NITROGEN 19 mg/dL (6-20); CALCIUM 9.2 mg/dL (8.5-10.3); CARBON DIOXIDE - CO2 28 mmol/L (21-32); CHLORIDE 106 mmol/L (101-111); CHOL/HDL RATIO 2.9 (<5.0); CHOLESTEROL 124 mg/dL; CREATININE 1.1 mg/dL (0.6-1.2); GFR - MDRD 65 (>89); GLUCOSE 126 mg/dL (70-100); HDL CHOLESTEROL 43 mg/dL; LDL CHOLESTEROL,CALCULATED 59 mg/dL; LDL/HDL RATIO 1.4 (<3.6); POTASSIUM 3.5 mmol/L (3.5-5.0); SODIUM 140 mmol/L (135-145); TOTAL PROTEIN 7.4 g/dL (6.7-8.2); TRIGLYCERIDES 112 mg/dL; VLDL CHOLESTEROL 22 mg/dL
[2023-02-11 17:39] LABS: THYROID STIMULATING HORMONE 1.66 uIU/mL (0.34-5.60)
[2023-02-11 17:42] LABS: BASOPHILS # (AUTO) 0.1 10^3/uL (0.0-0.1); BASOPHILS % (AUTO) 1.1 %; EOSINOPHILS # (AUTO) 0.4 10^3/uL (0.0-0.7); EOSINOPHILS % (AUTO) 5.6 %; HCT - HEMATOCRIT 38.5 % (42.0-52.0); HGB - HEMOGLOBIN 12.4 g/dL (14.0-18.0); LYMPHOCYTES # (AUTO) 1.8 10^3/uL (1.5-3.5); LYMPHOCYTES % (AUTO) 23.5 %; MEAN CORPUSCULAR HEMOGLOBIN 30.3 pg (27.0-31.0); MEAN CORPUSCULAR HGB CONC 32.2 g/dL (32.0-36.0); MEAN CORPUSCULAR VOLUME 94.1 fL (80.0-94.0); MEAN PLATELET VOLUME 10.8 fL (7.4-11.4); MONOCYTES # (AUTO) 0.7 10^3/uL (0.0-1.0); MONOCYTES % (AUTO) 9.3 %; NEUTROPHILS # (AUTO) 4.5 10^3/uL (1.5-6.6); NEUTROPHILS % (AUTO) 60.1 %; PLT - PLATELET COUNT 261 10^3/uL (130-450); RED BLOOD COUNT 4.09 10^6/uL (4.70-6.10); RED CELL DISTRIBUTION WIDTH 13.4 % (12.0-15.0); WHITE BLOOD COUNT 7.5 x10^3/uL (4.8-10.8)
[2023-02-11 20:39] LABS: ESTIMATED AVERAGE GLUCOSE 123 mg/dL (70-100); HEMOGLOBIN A1c% 5.9 % (4.27-6.07)
== END 2023-02-11 15:59 | disposition home or self-care (01) ==
LOC: LAB.N 15:58
PROVIDERS: ATTEND Family Medicine
DX: I10 Essential (primary) hypertension (principal); M25.462 Effusion, left knee; E66.9 Obesity, unspecified; K21.9 Gastro-esophageal reflux disease without esophagitis; I65.29 Occlusion and stenosis of unspecified carotid artery; E78.5 Hyperlipidemia, unspecified
CPT/HCPCS: 36415; 80053; 80061; 83036; 83721; 84443; 85025

== ENCOUNTER 2024-02-15 09:49 | Outpatient (CLI) | payer MEDICARE, OTHER ==
[2024-02-15 12:51] LABS: BASOPHILS # (AUTO) 0.1 10^3/uL (0.0-0.1); BASOPHILS % (AUTO) 1.1 %; EOSINOPHILS # (AUTO) 0.4 10^3/uL (0.0-0.7); EOSINOPHILS % (AUTO) 6.5 %; HCT - HEMATOCRIT 42.9 % (42.0-52.0); HGB - HEMOGLOBIN 13.3 g/dL (14.0-18.0); LYMPHOCYTES # (AUTO) 1.5 10^3/uL (1.5-3.5); LYMPHOCYTES % (AUTO) 23.5 %; MEAN CORPUSCULAR HEMOGLOBIN 28.9 pg (27.0-31.0); MEAN CORPUSCULAR VOLUME 93.3 fL (80.0-94.0); MEAN PLATELET VOLUME 11.3 fL (7.4-11.4); MONOCYTES # (AUTO) 0.6 10^3/uL (0.0-1.0); MONOCYTES % (AUTO) 9.7 %; NEUTROPHILS # (AUTO) 3.8 10^3/uL (1.5-6.6); NEUTROPHILS % (AUTO) 58.9 %; PLT - PLATELET COUNT 239 10^3/uL (130-450); RED CELL DISTRIBUTION WIDTH 13.6 % (12.0-15.0); WHITE BLOOD COUNT 6.4 x10^3/uL (4.8-10.8)
[2024-02-15 13:13] LABS: ESTIMATED AVERAGE GLUCOSE 126 mg/dL (70-100)
[2024-02-15 13:18] LABS: ALBUMIN/GLOBULIN RATIO 1.3 (1.0-2.2); ALKALINE PHOSPHATASE 59 IU/L (42-121); ALT ALANINE AMINOTRANSFERASE 24 IU/L (10-60); AST ASPARTATE AMINOTRANSFERASE 21 IU/L (10-42); BILIRUBIN,TOTAL 0.8 mg/dL (0.2-1.0); BUN - BLOOD UREA NITROGEN 16 mg/dL (6-20); CALCIUM 9.6 mg/dL (8.5-10.3); CARBON DIOXIDE - CO2 26 mmol/L (21-32); CHLORIDE 107 mmol/L (101-111); CHOL/HDL RATIO 2.3 (<5.0); CHOLESTEROL 107 mg/dL; GFR - MDRD 72 (>89); GLUCOSE 117 mg/dL (74-104); HDL CHOLESTEROL 46 mg/dL; LDL CHOLESTEROL,CALCULATED 48 mg/dL; POTASSIUM 3.8 mmol/L (3.5-4.5); SODIUM 139 mmol/L (135-145); TOTAL PROTEIN 7.1 g/dL (6.4-8.9); TRIGLYCERIDES 64 mg/dL (48-352); VLDL CHOLESTEROL 13 mg/dL
[2024-02-15 13:34] LABS: THYROID STIMULATING HORMONE 2.88 uIU/mL (0.34-5.60)
== END 2024-02-15 09:50 | disposition home or self-care (01) ==
LOC: LAB.N 09:49
PROVIDERS: ATTEND Family Medicine
DX: I10 Essential (primary) hypertension (principal); Z86.79 Personal history of other diseases of the circulatory system; E66.9 Obesity, unspecified; Z63.8 Other specified problems related to primary support group; K21.9 Gastro-esophageal reflux disease without esophagitis; I65.21 Occlusion and stenosis of right carotid artery; E78.5 Hyperlipidemia, unspecified; Z12.5 Encounter for screening for malignant neoplasm of prostate; R73.01 Impaired fasting glucose
CPT/HCPCS: 36415; 80053; 80061; 83036; 84443; 85025; G0103; 83721; 84153